=== PATIENT | male | born 1970 | race Caucasian/White ===

== ENCOUNTER → 2020-01-05 15:48 | Outpatient (BNVA) | payer OTHER, SELFPAY | PROVIDERS: Family Provider Family Medicine; PCP Family Medicine; Visit Provider Nurse Practitioner | DX: M25.561 Pain in right knee (principal) | CPT/HCPCS: 73562 ==

== ENCOUNTER 2020-01-18 09:32 | Outpatient (CLI) | payer OTHER, SELFPAY ==
--- NOTE | 2020-01-18 09:30 | MR_ITS ---
WS: [id number] MRI RIGHT KNEE HISTORY: M25.569 Pain in unspecified knee COMPARISON: None available. Anterior cruciate ligament: Intact. Posterior cruciate ligament: Intact. Medial collateral ligament: Intact. Posterior lateral corner structures: Intact. Medial menisci: Complex tear in the posterior horn towards the meniscal root. Mild fraying along the articular surfaces. Lateral meniscus: Intact. Normal signal, size and shape. Extensor mechanism: Distal quadriceps tendon and patellar tendons are intact. Fluid and soft tissue: Small suprapatellar effusion. No Mejia's cyst. Osseous and articular structures: Patellofemoral compartment: Normal. Medial compartment: Small defects along the cartilage of the femoral condyle along the joint line. No full-thickness defects extending to the marrow. There is no marrow edema. Lateral compartment: Negative. Lobulated cystic mass adjacent to the fibular head and popliteus tendon. This lobulated cystic mass m easures 2 cm in length. MR/MR knee RT wo con* [id number] IMPRESSION: 1. Complex tear posterior horn medial meniscus at the meniscal root. 2. Small cartilaginous defects medial femoral condyle and tibial plateau. 3. Lobulated cystic mass adjacent to the fibular head and popliteus tendon. Bu rsal fluid versus ganglion.
== END 2020-01-18 09:33 | disposition home or self-care (01) ==
LOC: RADSHAW 09:34
PROVIDERS: PCP Family Medicine; Visit Provider Orthopaedic Surgery
DX: M25.561 Pain in right knee (principal); S83.231A Complex tear of medial meniscus, current injury, right knee, initial encounter; X58.XXXA Exposure to other specified factors, initial encounter; R22.41 Localized swelling, mass and lump, right lower limb
CPT/HCPCS: 73721

== ENCOUNTER → 2020-03-04 11:25 | Outpatient (BNVA) | payer OTHER, SELFPAY | PROVIDERS: PCP Family Medicine; Visit Provider Internal Medicine | DX: Z11.59 Encounter for screening for other viral diseases (principal) | CPT/HCPCS: 87635 ==

== ENCOUNTER 2020-03-06 07:18 | Day surgery (SDC) | payer OTHER, SELFPAY ==
[2020-03-05 14:58] VITALS: BMI 48.4
[2020-03-06 07:35] VITALS: BP 173/111; PULSE 76; RESP 18; TEMP 36.8; O2SAT 98
[2020-03-06] MEDS: sodium chloride 0.9% 1,000 ML 30 ML IV (07:45)
[2020-03-06] MEDS: labetalol 5 mg/mL SDV 20mL IVP ×2 (07:56→09:08)
[2020-03-06 08:00] VITALS: BP 151/91
--- NOTE | 2020-03-06 08:47 | ANES.PREANE2 ---
Pre-Anesthetic Assessment Pre-Anesthetic Assessment: Height/Weight: Height 1.68 m Weight 136.078 kg Temp Pulse Resp BP Pulse Ox 98.2 F 76 18 151/91 98 03/06/20 07:35 03/06/20 07:35 03/06/20 07:35 03/06/20 08:00 03/06/20 07:35 Preop Diagnosis: Right medial meniscal tear Proposed Procedure: Operation Date: 03/06/20 08:25 Proposed Procedures p Knee Arthroscopy possible medial menisectomy(Right) - Akil Kelley MD Familial anesthetic complications: none Was Beta Moy taken within 24 hours: N/A Last intake: Intake Last Liquid Date 03/05/20 Last Liquid Time 19:00 Last Solid Date 03/05/20 Last Solid Time 19:00 Last Intake: 20:00 Social: Social History: Tobacco (chew) and No alcohol Airway: MP: 3 Dentition: Full Pulmonary: Pulmonary: Sleep apnea (not been tested) and None reported CV/HEM: CV/HEM: HTN : : None reported Hepatic: Hepatic: None reported GI: GI: GERD Metabolic: Metabolic: Morbid obesity Musc/skel: Musc/skel: None reported Neuropsych: Neuropsych: None reported Anesthetic Plan: ASA status: 2 Anesthesia: General Risk of > 500 ml blood loss (7ml/kg in children): No Meds/Allergies Current Medications: Current Medications Generic Name Dose Route Start Last Admin Trade Name Freq PRN Reason Stop Dose Admin Sodium Chloride 1,000 mls @ 30 ml s/hr 03/06/20 07:15 03/06/20 07:45 Sodium Chloride 0.9% IV 03/07/20 07:14 30 mls/hr .Q24H DEBRA Administration PFSH Anesthesia PFSH: Social History Smoking and tobacco status: current every day smoker smokeless tobacco Alcohol intake: never Data Anesthesia Cardiac Studies: No Data to Display
--- NOTE | 2020-03-06 09:28 | P.HP_ITS ---
Same Day Surgery H&P Indication for Procedure/HPI DATE OF PROCEDURE: March 06, 2020 CHIEF COMPLAINT/INDICATIONFOR SURGICAL PROCEDURE: Right medial meniscal tear PREOP DIAGNOSIS: Right medial meniscal tear PLANNED PROCEDRUE: Operation Date: 03/06/20 08:25 Proposed Procedures p Knee Arthroscopy possible medial menisectomy(Right) - Akil Kelley MD RD is a 49-year-old male who injured his right knee walking while at work December of this year. He had persistent pain and an MRI was obtained showing a complex tear of the meniscal root. He continues to experience pain and swelling and has chosen to proceed with arthroscopic treatment of his meniscus Medications/Allergies* Home Medications Medication Instructions Recorded Confirmed Type lisinopril 10 1 tab PO .PRN tab 01/05/20 03/06/20 History mg-hydrochlorothiazide 12.5 mg tablet Allergies/Adverse Reactions Allergy/AdvReac Type Severity Reaction Status Date / Time No Known Allergies Allergy Verified 03/06/20 07:24 Current Medications: Generic Name Dose Route Start Last Admin Trade Name Freq PRN Reason Stop Dose Admin Sodium Chloride 1,000 mls @ 30 mls/hr 03/06/20 07:15 03/06/20 07:45 Sodium Chloride 0.9% IV 03/07/20 07:14 30 mls/hr .Q24H DEBRA Administration Pertinent History/Comorbid Conditions* Social History Smoking and tobacco status: current every day smoker smokeless tobacco Alcohol intake: never Pertinent Exam Findings alert, oriented x 3, clear to auscultation bilaterally and regular rate & rhythm RD has a effusion in the right knee. His motion is from full extension 120 degrees. 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
[2020-03-06 10:10] VITALS: BP 151/99; PULSE 82; RESP 16; TEMP 36.2; O2SAT 96
--- NOTE | 2020-03-06 10:12 | SUR.PHASEI ---
1010 PATIENT TO PACU FROM OR. NO DISTRESS. TALKATIVE. DENIES PAIN.
[2020-03-06 10:15] VITALS: BP 134/89; PULSE 75; RESP 16; O2SAT 94
[2020-03-06 10:20] VITALS: BP 137/92; PULSE 73; RESP 20; TEMP 36.2; O2SAT 95
[2020-03-06 10:27] VITALS: BP 158/90; PULSE 75; RESP 18; TEMP 36.3; O2SAT 95
--- NOTE | 2020-03-06 10:27 | SUR.PHASEI ---
1021 PATIENT TO OPS. A/OX3. NO DISTRESS.
--- NOTE | 2020-03-06 10:32 | PM.OP ---
Operative Report Date of procedure: March 06, 2020 Pre-op Diagnosis: Right medial meniscal tear Post-op diagnosis: same Post-op Findings: Not applicable Procedure Done: None Surgeon: Akil Kelley Anesthesia: General Procedure: Patient was taken to the operating room. Intubation was difficult and ultimately the endotracheal intubation was aborted for a laryngeal mask airway. Due to the prolonged difficult intubation it was thought best by anesthesia to cancel surgery and proceed back to the PACU to ensure the patient was stable. Surgery will be scheduled at a later date.
--- NOTE | 2020-03-06 10:40 | ANE.PACU2 ---
Inpatient post-anesthesia follow up: Airway intact: Yes Vital signs: Temperature 97.4 F Pulse Rate 75 Respiratory Rate 18 Blood Pressure 158/90 Pulse Oximetry 95 Oxygen Delivery Me thod Room Air Oxygen Flow Rate Fraction of Inspir ed Oxygen Hydration adequate: Yes Nausea and vomiting: No Pain level: 1 Mental status: Baseline
--- NOTE | 2020-03-06 12:02 | PM.MISC ---
Miscellaneous Note Purpose of Documentation: Surgery Note: Patient was brought to OR and induced using a RSI technique for hx of Severe GERD. MAC 3.5 showed grade IV view and bagmask ventilation using a 100 mm oral airway was instituted with no movement of air, while a Glidescope was prepared. Glidescope revealed Grade IIb view, but ETT was unable to pass through cords d/t anterior airway. Patient desatted during glidescope attempt and patient showed signs of hypoxia, including cyasnosis, so LMA 4 was urgently placed. CO2 returned. Sats improved, decadron 8 mg IV was given for airway edema. Decision was made to abort case to assess neurologic status. Patient's spontaneous respirations reappeared and were regular w/ good tidal volume. He awoke and followed commands. His oropharynx was suctioned for blood. He was informed in recovery that he was a difficult airway and hard to bagmask. Patient indicated understanding. When rescheduled may proceed with LMA if no active gerd that day or would attempt awake intubation.
== END 2020-03-06 10:43 | disposition home or self-care (01) ==
PROVIDERS: PCP Family Medicine; Visit Provider Orthopaedic Surgery
DX: S83.241A Other tear of medial meniscus, current injury, right knee, initial encounter (principal); X58.XXXA Exposure to other specified factors, initial encounter; Z53.8 Procedure and treatment not carried out for other reasons; F17.220 Nicotine dependence, chewing tobacco, uncomplicated; G47.30 Sleep apnea, unspecified; I10 Essential (primary) hypertension; E66.01 Morbid (severe) obesity due to excess calories; Z68.42 Body mass index [BMI] 45.0-49.9, adult
CPT/HCPCS: 12345; J0330; J0360; J1100; J2405; J2704; J3010; J3490; J7030

== ENCOUNTER → 2020-03-24 11:20 | Outpatient (BNVA) | payer OTHER, SELFPAY | PROVIDERS: PCP Family Medicine; Visit Provider Orthopaedic Surgery | DX: Z11.59 Encounter for screening for other viral diseases (principal) | CPT/HCPCS: 87635 ==

== ENCOUNTER 2020-03-27 08:34 | Day surgery (SDC) | payer OTHER, SELFPAY ==
[2020-03-26 09:07] VITALS: BMI 48.4
[2020-03-27] VITALS (25 sets, daily range): BP systolic 77–139; BP diastolic 40–79; PULSE 64–92; RESP 16–27; TEMP 36.5–36.7; O2SAT 93–100
[2020-03-27] MEDS: sodium chloride 0.9% 1,000 ML 30 ML IV (09:04)
--- NOTE | 2020-03-27 09:45 | P.ANESUD_ITS ---
Pre-Anesthetic Update Pre-Anesthetic Assessment: Date of Surgery/Procedure: 03/27/20 Preop Esha gnosis: Right medial meniscal tear Proposed Procedure: Operation Date: 03/27/20 11:30 Proposed Procedures p Right Knee Arthroscopy with medial meniscectomy [id number] S83.206(Right) - Akil Kelley MD Any changes to Pre-Anesthetic Assessment?: Yes Changes from Pre-Anesthetic Assessment: BP better contolled today, he has been taking his medications. States he had GERD last night and took a pill, but today he has empty stomach and no active GERD. Last Intake: Intake Last Liquid Date 03/26/20 Last Liquid Time 21:00 Last Solid Date 03/26/20 Last Solid Time 19:00 Vitals: Temperature 97.7 F 03/27/20 08:51 Temperature Source Temporal Artery S can 03/27/20 08:51 Pulse Rate 77 03/27/20 08:51 Pulse Rhythm 03/27/20 08:51 Pulse Strength 3+ Normal 03/27/20 08:51 Respiratory Rate 18 03/27/20 08:51 Blood Pressure 139/79 03/27/20 08:51 Blood Pressure Cinthia n 99 03/27/20 08:51 Pulse Oximetry 98 03/27/20 08:51 Oxygen Delivery Me thod 03/27/20 08:51 Exam: Pre-Anes Outpt Exam: alert, oriented x 3, clear to auscultation bilaterally and regular rate & rhythm Other Pertinent Information: Other Pertinent Information: Will proceed with LMA and keep patient in semi upright position Cardiac Studies: No Data to Display
--- NOTE | 2020-03-27 11:37 | W.PM.OPSFHP ---
Same Day Surgery H&P Indication for Procedure/HPI DATE OF PROCEDURE: March 27, 2020 CHIEF COMPLAINT/INDICATIONFOR SURGICAL PROCEDURE: Right medial meniscal tear PREOP DIAGNOSIS: Right medial meniscal tear PLANNED PROCEDRUE: Operation Date: 03/27/20 11:30 Proposed Procedures p Right Knee Arthroscopy with medial meniscectomy 97129 [id number] S83.206(Right) - Akil Kelley MD R.D. is a 50-year-old male who injured his right knee on 12/31/2019 during the course of employment. He apparently turned a corner on his knee while at work with his knee giving out resulting pain and swelling. An MRI was obtained on 01/18/2020 revealed complex tearing the posterior horn medial meniscus near the meniscal root. He was additionally counseled regarding surgery and tried to proceed with nonoperative treatment. He continued to have pain and swelling and chose to proceed. He is here today for diagnostic arthroscopy and likely medial meniscectomy/possible meniscal repair. He describes continued pain and swelling which is been unchanged over the past 2 months Medications/Allergies* Home Medications Medication Instructions Recorded Confirmed Type hydrochlorothiazide 25 mg PO DAILY 03/26/20 03/27/20 History lisinopril 40 mg PO DAILY 03/26/20 03/27/20 History Allergies/Adverse Reactions Allergy/AdvReac Type Severity Reaction Status Date / Time No Known Allergies Allergy Verified 03/06/20 07:24 Current Medications: Generic Name Dose Route Start Last Admin Trade Name Freq PRN Reason Stop Dose Admin Sodium Chloride 1,000 mls @ 30 mls/hr 03/27/20 08:45 03/27/20 09:04 Sodium Chloride 0.9% IV 03/28/20 08:44 30 mls/hr .Q24H DEBRA Administration Pertinent History/Comorbid Conditions* Social History Smoking and tobacco status: current every day smoker smokeless tobacco Alcohol intake: never Pertinent Exam Findings alert, oriented x 3, clear to auscultation bilaterally, regular rate & rhythm, operative site marked and procedure specific exam findings (He has a moderate effusion of the right knee. His motion is from full extension 120 degrees.) Pertinent Data PERTINENT DATA: MRI report and scan have been reviewed dated 01/18/2020. The patient has complex tearing the posterior horn medial meniscus Recommendations Surgery/Procedure today Other Plans: To proceed with diagnostic arthroscopy. We will evaluate the medial meniscus. I told her that meniscal repair is unlikely possibility and this most likely will be treated with a meniscectomy. Treatment will depend on the status of his meniscus. I made him aware that we will address any other abnormal findings arthroscopically. He is aware of the risk including continued pain and future degenerative change. I discussed unlikely risk of bleeding and infection. He has also aware of nonoperative care as an option and is failed nonoperative care with his resulting for decision for surgery. 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
[2020-03-27] MEDS: citric acid-sodium citrate 30 mL UDC PO (12:10)
[2020-03-27] MEDS: famotidine 20 mg/2 mL INJ IVP ×2 (12:10)
--- NOTE | 2020-03-27 12:55 | SUR.OPER ---
Family Notified Of Patient's Status Via Phone.
[2020-03-27] MEDS: morphine 4 mg/mL SDV 1 mL 8 MG IM (13:00)
--- NOTE | 2020-03-27 13:30 | PM.OP ---
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 He had fibrillation fraying over the weightbearing aspect of the medial femoral condyle marked thinning of the central weightbearing cartilage but no exposed bone. He had full-thickness cartilage loss over the medial and lateral trochlea with peripheral flaps and fissures. He had thinning of the central patella with flaps and fissures and no exposed bone Condition: stable Disposition: PACU Procedure: The patient was taken to the operating room and given a spinal anesthesia. He was given 2 g of Ancef. He is prepped and draped in the supine position with a tourniquet on the right thigh. The tourniquet was never inflated. The knee was entered through a standard inferior medial and inferior lateral portal. Diagnostic portion arthroscopy was performed. Initial attention was paid to the posterior medial meniscus. Arthroscopic probe revealed the central flap tear. Peripheral attachments however seem to be intact. Degenerative changes were identified the medial compartment and incision was chose to proceed with a partial meniscectomy of the unstable posterior medial meniscus. Utilizing a straight basket and incisor shaver the unstable flap was debrided back. This left approximately 50% of the meniscus remaining with a good attachment. The rim was cleaned up with the [employer] Werewolf probe leaving a stable borders of tissue. Attention was then focused to the medial femoral condyle. Unstable flaps and fissures were debrided back with the incisor shaver to stable margins. The rim was cleaned up with the [employer] Werewolf probe bleeding stable margins. Marked thinning was identified of the central weightbearing cartilage but no exposed subchondral bone was noted. Attention was focused on the trochlea. There exposed subchondral bone was identified centrally but unstable flaps and fissures medially and laterally were debrided back with incisor shaver and [employer] Werewolf probe. Final attention was focused on the central patella. Utilizing the shaver and werewolf probe unstable central fissures and flaps were debrided back to a stable base. The knee was irrigated with saline. Portals were closed with 3-0 Prolene. Sterile dressings were applied. Patient was extubated taken recovery in stable condition.
--- NOTE | 2020-03-27 14:00 | ECG_ITS ---
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 Measurements Intervals [place] Rate: 75 P: 28 ME: 168 QRS: 4 QRSD: 106 T: -3 QT: 395 QTc: 442 Interpretive Statements SINUS RHYTHM MODERATE VOLTAGE CRITERIA FOR LVH, CONSIDER NORMAL VARIANT [MEETS CRITERIA IN ONE OF: R(aVL), S(V1), R(V5), R(V5/V6)+S(V1)] No previous ECG available for comparison Electronically Signed On 03-27-2020 18:37:24 CDT by Bill Purcell M.D. [email or web address]
--- NOTE | 2020-03-27 14:03 | SUR.PHASEI ---
1327 PT TO PACU AWAKE ALERT HOB AT 30 DEGREES PT TALKATIVE AND LAUGHING, BP LOW, CUFF TO RT UPPER AND LOWER ARM HOB LOWERED KNEES ELEVATED DRESSSING TO RT KNEE D/I DISTAL PULSE TO RT FOOT NOTED. 1350 PT COMPLAINS OF CHEST PAIN , STATES (MOSTLY ON OUTSIDE LT HEART AREA) DR TEJADA AT BEDSIDE BP REMAINS LOW, SEE ANESTH MED GIVEN, EKG CALLED FOR [address] TEJADA AT BEDSIDE PT IN TRENDELEN PARRIS, BP 93/60 NS AT 100/HR PER DR CALDERON
--- NOTE | 2020-03-27 14:17 | SUR.PHASEI ---
PT C/O OF CHEST PAIN IF BP DROPS BELOW 100 SYSTOLIC
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
--- NOTE | 2020-03-27 15:24 | SUR.PHASEII ---
1510: pt feels sensation to belly button. He can move his left leg side to side. Can feel touch in his toes of both feet, cannot move toes.
--- NOTE | 2020-03-27 15:40 | ANE.PACU2 ---
Inpatient post-anesthesia follow up: Airway intact: Yes Vital signs: Temperature 98.0 F Pulse Rate 74 Respiratory Rate 18 Blood Pressure 93/74 Pulse Oximetry 99 Oxygen Delivery Me thod Room Air Oxygen Flow Rate Fraction of Inspir ed Oxygen Hydration adequate: Yes Nausea and vomiting: No Pain level: 1 Mental status: Baseline Additional Comments: patient up and walking, no weakness, urinated
--- NOTE | 2020-03-27 15:40 | SUR.PHASEII ---
patient able to move both legs side to side
== END 2020-03-27 17:36 | disposition home or self-care (01) ==
PROVIDERS: PCP Family Medicine; Visit Provider Orthopaedic Surgery
PROC: (CPT 29870; principal; 2020-03-27 11:30)
DX: S83.241A Other tear of medial meniscus, current injury, right knee, initial encounter (principal); W19.XXXA Unspecified fall, initial encounter; Y99.0 Civilian activity done for income or pay; F17.290 Nicotine dependence, other tobacco product, uncomplicated
CPT/HCPCS: 29881; 12345; 93005; 96374; 96375; J0690; J2250; J2270; J2370; J2704; J3490; J7030

== ENCOUNTER 2021-02-02 12:55 | Emergency (ER) | payer OTHER, SELFPAY ==
--- NOTE | 2021-02-02 13:11 | XR_ITS ---
WS: [id number] Exam: XR hand LT min 3V* [id number] Date/Time of Exam: 02/02/2021 1:11 PM Reason For Exam: trauma Findings: No fractures, soft tissue swelling, or unusual calcifications are noted. The hand shows normal bony alignment. There is no irregularity of the bony architecture. XR/XR hand LT min 3V* [id number] IMPRESSION: Normal left hand.
--- NOTE | 2021-02-02 13:11 | CT_ITS ---
WS: [id number] Exam: CT head wo con* [id number] Date/Time of Exam: 02/02/2021 1:17 PM Reason For Exam: closed head injury DLP: 1025.[address] scans at [facility] use at least one of these dose optimization techniques: automat ed exposure control; mA and/or kV adjustment per patient size (includes targeted exams where dose is matched to clinical indication); or iterative reconstruction. No sign of acute intracranial bleed or space-occupying mass. The ventricles and basal cisterns are no rmal in appearance. No extra-axial fluid collections. The skull is intact. The mastoids and facial si nuses are clear. CT/CT head wo con* [id number] IMPRESSION: 1. Unremarkable noncontrast CT scan of the brain.
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
[2021-02-02 13:47] VITALS: BP 169/110; PULSE 102; RESP 20; TEMP 37.1; O2SAT 99; BMI 46.0
== END 2021-02-02 14:04 | disposition home or self-care (01) ==
PROVIDERS: Emergency Provider Family Medicine; PCP Family Medicine
DX: S09.90XA Unspecified injury of head, initial encounter (principal); S69.92XA Unspecified injury of left wrist, hand and finger(s), initial encounter; I10 Essential (primary) hypertension; F17.200 Nicotine dependence, unspecified, uncomplicated; Y04.2XXA Assault by strike against or bumped into by another person, initial encounter; Y92.238 Other place in hospital as the place of occurrence of the external cause
CPT/HCPCS: 70450; 73130; 99282

== ENCOUNTER → 2021-09-16 08:09 | Outpatient (BNVA) | payer OTHER, SELFPAY | PROVIDERS: PCP Family Medicine; Visit Provider Orthopaedic Surgery | DX: M25.562 Pain in left knee (principal); M17.12 Unilateral primary osteoarthritis, left knee | CPT/HCPCS: 73562 ==

== ENCOUNTER → 2024-08-17 10:41 | Outpatient (BNVA) | payer OTHER, SELFPAY | PROVIDERS: PCP Family Medicine; Visit Provider Family Medicine | DX: I10 Essential (primary) hypertension (principal); E66.9 Obesity, unspecified; M54.9 Dorsalgia, unspecified; R53.83 Other fatigue; Z72.0 Tobacco use; E03.9 Hypothyroidism, unspecified; E55.9 Vitamin D deficiency, unspecified; G47.20 Circadian rhythm sleep disorder, unspecified type | CPT/HCPCS: 80053; 80061; 82172; 82607; 82652; 83036; 84443; 85025; 86140 ==

== ENCOUNTER → 2024-11-14 17:36 | Outpatient (BNVA) | payer OTHER, SELFPAY | PROVIDERS: PCP Family Medicine | DX: R39.9 Unspecified symptoms and signs involving the genitourinary system (principal); R81 Glycosuria | CPT/HCPCS: 81000; 82962; 87086 ==